=== PATIENT | female | born 1985 | race Caucasian/White ===

== ENCOUNTER 2020-08-01 06:22 | Day surgery (SDC) | payer OTHER ==
[~2020-08-01] VITALS: Ht 165.1 cm; Wt 61.4 kg
[~2020-08-01 06:22] MED LIST: DAILY VITE1 EACH PO; ODOR FREE GARL1 EACH PO; OSTERA TABLET1 EACH PO; PENICILLIN V P500 MG PO; TYLENOL325 MG PO
[2020-08-01] MEDS ORDERED: COMPLEX B-1001 EACH PO (06:41)
--- NOTE | 2020-08-01 08:09 | NUR ---
08/01/20 0809 Mckenna Varner 0804- PT ARRIVES TO PACU NONAROUSABLE TO NOXIOUS STIMULI WITH AN OPA IN PLACE. RESP EVEN AND UNLABORED. OXYGEN SAT HIGH 90'S TO 100% ON 10L VIA MASK. 0806- OXYGEN TITRATED DOWN TO 6L VIA MASK.
--- NOTE | 2020-08-01 08:44 | NUR ---
0883 PT BACK TO ROOM FROM PACU ALERT AND AWAKE DENIES PAIN, REPORTS THAT SHE FEELS LIKE SHE CANT SWALLOW, I CAN VISABLE SEE HER THROAT MOVE SHE IS SWALLOWING. HER IS AT BEDSIDE, SHE DENIES NAUSEA. SHE TRIED TO TAKE A SIP OF WATER BUT COUGHED WHEN IT WAS GOING DOWN HER THROAT, BUT SHE WAS STILL ABLE TO SWALLOW WATER.
--- NOTE | 2020-08-01 09:34 | NUR ---
0930 PT TAKING BITES OF APPLESAUCE AND SIPS OF WATER TOLERATES WELL. DENIES PAIN, AND NAUSEA. REPORTS SHE IS VERY TIRED.
--- NOTE | 2020-08-01 10:15 | NUR ---
PT ALERT, ORIENTED AND SUPPORTED BY HER NATHAN. PT CONFESSED FEELING SOMEWHAT ANXIOUS. OUTLINED THE DAY, GAVE ENCOURAGEMENT AND ANSWERED ALL OF HER QUESTIONS. NATHAN WILL REMAIN, PT REQUESTED PRAYER. WILL FOLLOW
--- NOTE | 2020-08-01 10:19 | NUR ---
1005 PT AND REPORT READINESS TO GO HOME, PT AWAKE AND ALERT DENIES PAIN AND NAUSEA. PT WALKED TO BATHROOM WITHOUT ASSIST SHE WAS ABLE TO VOID. DISCHARGE INSTRUCTIONS GIVEN TO PT AND IV DC'D TIP INTACT. PT WAS ABLE TO TAKE SIPS OF WATER TOLERATES WELL.
--- NOTE | 2020-08-02 14:07 | PATH ---
[facility] [address], [place] [address] Signed SPECIMEN(S): A RIGHT TONSIL SPECIMEN(S): B LEFT TONSIL SPECIMEN SOURCE: A. RIGHT TONSIL B. LEFT TONSIL CLINICAL HISTORY: Chronic tonsillitis FINAL PATHOLOGIC DIAGNOSIS: A. Tonsil, right, tonsillectomy: - Reactive follicular lymphoid hyperplasia. B. Tonsil, left, tonsillectomy: - Reactive follicular lymphoid hyperplasia. NAL:cml:[id number] MICROSCOPIC EXAMINATION: Histologic sections of all submitted blocks are examined by light microscopy. These findings, together with the gross examination, support the pathologic diagnosis. GROSS DESCRIPTION: Two specimens are received in two containers, labeled "JV." A. The specimen, labeled "JV, A," and designated on the requisition "tonsil right," is received in formalin and consists of a peralta-pink, rubbery, irregularly-shaped, 2.5 x 2.2 x 1.0 cm tonsil that is cross-sectioned to reveal peralta-white, homogenous, grossly unremarkable tissue without a discrete mass/lesion. A compliance representative section is submitted in one cassette (A1). B. The specimen, labeled "JV, B," and designated on the requisition "left tonsil," is received in formalin and consists of an irregular shaped, peralta-pink, rubbery, 2.9 x 2.0 x 1.6 cm tonsil that is inked blue and cross-sectioned to reveal peralta, grossly unremarkable tissue with usual crypts. A discrete mass/lesion is not grossly identified. A compliance representative section is submitted with part A in one cassette (A1). AI (under the direct supervision of a pathologist) The Gross Description was prepared using a voice recognition system. The report was reviewed for accuracy; however, sound-alike word errors, addition and/or PATIENT NAME: LUIS WHITE PATHOLOGY DATE OF : 81 REPORT #: [id number] PHYSICIAN: VONDA HOWARD PCP: PATRICIA BE REPORT IS CONFIDENTIAL AND NOT TO BE RELEASED WITHOUT AUTHORIZATION [facility] [address], [place] [address] Signed deletions may occur. If there is any question about this report, please contact Client Services. PERFORMING LABORATORY: The technical component was performed by [facility] [address] [address] ([employer]: Perla Brooks MD; CLIA# [id number]). Professional interpretation was performed by [facility], [address] [address] (CLIA# [id number]). Diagnostician: Viry Rees MD Pathologist Electronically Signed 08/02/2020 Copies: ~ PATIENT NAME: LUIS WHITE PATHOLOGY DATE OF : [birth year] REPORT #: [id number] PHYSICIAN: VONDA PATHOLOGY PCP: PATRICIA BE REPORT IS CONFIDENTIAL AND NOT TO BE RELEASED WITHOUT AUTHORIZATION
--- NOTE | 2020-08-08 08:26 | OR ---
[facility] [address] [place], [place] [address] Signed DATE OF OPERATION: 08/01/2020 SURGEON: Akash Morrell MD PREOPERATIVE DIAGNOSES: Chronic tonsillitis with tonsillith. POSTOPERATIVE DIAGNOSES: Chronic tonsillitis with tonsillith. PROCEDURE: Tonsillectomy. INDICATIONS: This 35-year-old female who has suffered from chronic tonsil stones and inflammation and irritation and low-grade pain with halitosis off and on for decades. She fishes stones out of the tonsils, this was confirmed on examination. This is a condition which is not treated with antibiotics effectively, surgery is the only alternative living with it. DESCRIPTION OF PROCEDURE: The patient was placed in a supine position, had an orotracheal intubation, was placed under general anesthesia. The McIvor mouth gag was inserted in the oral cavity and the right tonsil grasped with a tenaculum, it was dissected from the pharyngeal musculature with a Bovie cautery tip on a setting of 25. A subcapsular bloodless plane was utilized allowing adequate time for thermal relaxation. Bismuth was placed in the tonsillar fossa to help with postop hemostasis and about 4 mL of 0.5% Marcaine 1:200,000 epinephrine were injected into the tonsillar fossa avoiding an intravascular injection for postop pain control. The mouth gag was entirely removed and the tissues allowed to reperfuse for minute for reinserting this time exposing the left tonsil. Left tonsil was removed in the same fashion as the right. Estimated blood loss was less than 1 mL. More Bismuth and another 4 mL of Marcaine. The patient was awakened, extubated and sent to the recovery in good condition. No complications. Akash Morrell MD SLN/MODL Electronically Signed By: AKASH MORRELL MD 08/08/20 0826 PATIENT NAME: LUIS WHITE OPERATIVE REPORT DATE OF : 81 REPORT #: [id number] PHYSICIAN: AKASH MORRELL MD PCP: PATRICIA BE REPORT IS CONFIDENTIAL AND NOT TO BE RELEASED WITHOUT AUTHORIZATION [facility] [address] [place] [id number] Signed /[id number] Copies: ~ Electronically Signed By: AKASH MORRELL MD 08/08/20 0826 PATIENT NAME: ELHAMSHIREENJEREMYLUIS OPERATIVE REPORT DATE OF : 81 REPORT #: [id number] PHYSICIAN: AKASH MORRELL MD PCP: PATRICIA BE REPORT IS CONFIDENTIAL AND NOT TO BE RELEASED WITHOUT AUTHORIZATION
== END 2020-08-01 10:15 | disposition home or self-care (01) ==
LOC: OPS 06:22 → DS 06:24 → OPS 06:45
PROVIDERS: ATTEND Otolaryngology
PROC: 0CTPXZZ Resection of Tonsils, External Approach (ICD-10-PCS; principal; 2020-08-01 06:45)
DX: J35.01 Chronic tonsillitis (principal); J35.8 Other chronic diseases of tonsils and adenoids
CPT/HCPCS: 00170; J0330; J1100; J1885; J2250; J2405; J2704; J2765; J3010; J7121